=== PATIENT | female | born 1930 | race Caucasian/White ===

== ENCOUNTER 2017-11-25 08:10 | Inpatient (IN) | payer MEDICARE ==
[~2017-11-25] VITALS: Ht 180.3 cm; Wt 82.6 kg
[~2017-11-25 08:10] MED LIST: ANAS1TAB8 PO; LEVO500T2 PO; LORA1TAB PO; METO100T14 PO; PANT40TA2 PO; TRAZ-144 PO
--- NOTE | 2017-11-25 08:23 | NUR ---
Pt and child caregiver private home unable to provide updated med list, per Pt her daughter will bring in med list.
[2017-11-25] MEDS ORDERED: ONDANSETRON 4 MG/2 ML VIAL IV ONE (08:30)
[2017-11-25] MEDS ORDERED: MORPHINE SULFATE 2 MG/1 ML DISP.SYRIN IV ONE (08:30)
[2017-11-25] MEDS ORDERED: IV NORMAL SALINE 1000 ML BAG IV ONE (08:30)
[2017-11-25] MEDS ORDERED: MORPHINE SULFATE 2 MG/1 ML DISP.SYRIN ONE (08:48)
[2017-11-25] MEDS ORDERED: ONDANSETRON 4 MG/2 ML VIAL ONE (08:48)
[2017-11-25 08:50] LABS: CARBON DIOXIDE 21 mmol/L (21-32); CHLORIDE 107 mmol/L (98-107); CREATININE 1.8 mg/dL (0.6-1.3); GLUCOSE 141 mg/dL (74-106); POTASSIUM 4.5 mmol/L (3.5-5.1); UREA NITROGEN, BLOOD 23 mg/dL (7-18)
[2017-11-25 08:54] LABS: BASOPHILS % (AUTO) 0.7 % (0.0-2.0); EOSINOPHILS # (AUTO) 0.2 K/uL (0.0-0.7); HEMATOCRIT 35.8 % (31.2-41.9); HEMOGLOBIN 12.7 g/dL (10.9-14.3); LYMPHOCYTES # (AUTO) 1.3 K/uL (20.0-40.0); LYMPHOCYTES % (AUTO) 26.8 % (20.5-51.5); MEAN CORPUSCULAR HEMOGLOBIN 39.2 uug (24.7-32.8); MEAN CORPUSCULAR HGB CONC 35 g/dL (32.3-35.6); MEAN CORPUSCULAR VOLUME 110.6 fL (75.5-95.3); MONOCYTES # (AUTO) 0.2 K/uL (2.0-10.0); MONOCYTES % (AUTO) 5.1 % (0.0-11.0); NEUTROPHILS % (AUTO) 63.4 % (38.5-71.5); PLATELET COUNT (AUTO) 54 K/uL (179-408); RED BLOOD CELL COUNT(AUTO) 3.24 MIL/uL (3.63-4.92); WHITE BLOOD COUNT (AUTO) 4.7 K/uL (3.8-11.8)
--- NOTE | 2017-11-25 09:14 | NUR ---
Patient was seen by md for fall nd hip pain. Patient was given pain medications. She states pain has diminished. denies nausea. Caregiver from home at bedside. Patient is awake and alert. Velasquez in place as ordered. Urine sent to lab. Pt an caregiver aware of pending admission to hospital. VSS
[2017-11-25 09:18] LABS: ALANINE AMINOTRANSFERASE 42 U/L (14-59); ALKALINE PHOSPHATASE 186 U/L (50-136); ASPARTATE AMINOTRANSFERASE 51 U/L (15-37); BILIRUBIN,DIRECT 0.1 mg/dL (0.0-0.2); BILIRUBIN,TOTAL 0.4 mg/dL (0.1-1.0)
[2017-11-25 09:19] LABS: LIPASE 91 U/L (73-393); TOTAL PROTEIN, SERUM 6.4 g/dL (6.4-8.2)
--- NOTE | 2017-11-25 09:31 | NUR ---
Report given to Stephany NUNEZ on tele floor. Daughter is now here at bedside.
[2017-11-25] MEDS ORDERED: AMIT10TA6 PO (09:36)
[2017-11-25] MEDS ORDERED: TAMS-3 PO (09:36)
[2017-11-25] MEDS ORDERED: MIRT15TA7 PO (09:36)
[2017-11-25] MEDS ORDERED: QUET50TA PO (09:36)
[2017-11-25] MEDS ORDERED: DONE10TA44 PO (09:36)
[2017-11-25 09:41] LABS: *BILIRUBIN,URIN NEGATIVE (NEGATIVE); *BLOOD, URINE NEGATIVE (NEGATIVE); *CLARITY,URINE CLEAR (CLEAR); *COLOR,URINE YELLOW (YELLOW); *KETONES,URINE NEGATIVE (NEGATIVE); *PROTEIN,URINE NEGATIVE (NEGATIVE); *UROBILINOGEN,URINE 0.2 E.U./dl (NORMAL); LEUKOCYTE ESTERASE ,URINE NEGATIVE (NEGATIVE); NITRITE, URINE NEGATIVE (NEGATIVE); PH,URINE 5.5 (5.0-8.0); UGLUCOSE NEGATIVE (NEGATIVE)
[2017-11-25 09:42] LABS: BACTERIA,URINE FEW /HPF (NONE SEEN); RBC,URINE 0-3 /HPF (0-3); SQUAMOUS EPITHELIAL CELL,UR FEW /HPF (NONE SEEN); WBC,URINE 0-3 /HPF (0-3)
[2017-11-25 09:49] LABS: EOSINOPHILS % (MANUAL) 2 % (0-8); LYMPHOCYTES % (MANUAL) 27 % (20-40); MONOCYTES % (MANUAL) 5 % (2-10); NEUTROPHILS % (MANUAL) 66 % (42-75)
--- NOTE | 2017-11-25 10:00 | NUR ---
Received patient from ER via gurney. Patient alert, in no distress, accompanied by daughter/family. Patient admitted to tele under the care of Dr. Osiris Hubbard. Dx: Left hip fracture. Belonging list done, admission process and care plan initiated. MD notified for new admission orders.
[2017-11-25 10:35] VITALS: BP 142/71
[2017-11-25] MEDS ORDERED: MORPHINE SULFATE 2 MG/1 ML DISP.SYRIN IV PRN (12:45)
[2017-11-25] MEDS ORDERED: HYDROCODONE/APAP 5-325MG TABLET PO PRN (12:45)
[2017-11-25] MEDS ORDERED: Medication Not On Formulary EA (Quetiapine Fumarate (Seroquel) 50 MG) PO PRN (12:45)
[2017-11-25] MEDS ORDERED: MAGNESIUM HYDROXIDE 30 ML LIQUID UDC PO PRN (12:45)
[2017-11-25] MEDS ORDERED: MIRTAZAPINE 15 MG TABLET PO PRN (12:45)
[2017-11-25] MEDS ORDERED: ACETAMINOPHEN 325 MG TABLET PO PRN (12:45)
[2017-11-25] MEDS ORDERED: LORAZEPAM 1 MG TABLET PO PRN (12:45)
[2017-11-25] MEDS ORDERED: Z GUARD REMEDY PASTE 57 GM TUBE TOP PRN (12:45)
[2017-11-25] MEDS ORDERED: ONDANSETRON 4 MG/2 ML VIAL IV PRN (12:45)
[2017-11-25] MEDS ORDERED: MORPHINE SULFATE 4 MG/1 ML DISP.SYRIN IV PRN (13:00)
[2017-11-25] MEDS: IV NS 1000 ML 1,000 ML IV PRN (13:37)
[2017-11-25 15:22] VITALS: BP 111/71
--- NOTE | 2017-11-25 18:00 | NUR ---
Patient alert, in no distress, family at bedside. Pain management as ordered. Velasquez cath intact/patent, draining yellow urine. Consent signed by daughter for planned surgery tomorrow. Consent form placed in patient's chart.
[2017-11-25 20:00] VITALS: BP 104/60
--- NOTE | 2017-11-25 20:00 | NUR ---
OBSERVED TO BE AWAKE AND ALERT X 2 WITH DAUGHTER AND CAREGIVER AT BEDSIDE. AWARE OF NPO ORDER AFTER MIDNIGHT FOR SURGERY TOMORROW. NO S/S OF DISTRESS NOTED AT THIS TIME. BED IN LOW, LOCKED POSITION. BED ALARM ON. CALL LIGHT WITHIN REACH. WILL CONTINUE TO MONITOR.
[2017-11-25] MEDS: QUETIAPINE FUMARATE 25 MG TABLET PO PRN (23:35)
[2017-11-26 04:00] VITALS: BP 126/70
--- NOTE | 2017-11-26 06:11 | NUR ---
CAREGIVER AT BEDSIDE. PT OBSERVED TO BE ANXIOUS AND DISORIENTED. REORIENTATION AND PRN MEDICATIONS ADMINISTERED ORDERED. PT NOTED TO HAVE SLEPT INTERMITTENTLY THROUGHOUT THE NIGHT. VITAL SIGNS WNL. BED IN LOW, LOCKED POSITION. BED ALARM ON. IVF RUNNING ORDERED. CALL LIGHT WITHIN REACH. WILL CONTINUE TO MONITOR.
[2017-11-26] MEDS: PANTOPRAZOLE SODIUM 40 MG TABLET.DR PO SCH (06:32)
[2017-11-26] MEDS: IV NS 1000 ML 1,000 ML IV PRN (07:19)
[2017-11-26 07:38] LABS: BASOPHILS % (AUTO) 0.6 % (0.0-2.0); EOSINOPHILS % (AUTO) 0.2 % (0.0-7.0); HEMATOCRIT 31.2 % (31.2-41.9); HEMOGLOBIN 10.8 g/dL (10.9-14.3); LYMPHOCYTES # (AUTO) 1.2 K/uL (20.0-40.0); LYMPHOCYTES % (AUTO) 15.3 % (20.5-51.5); MEAN CORPUSCULAR HGB CONC 35 g/dL (32.3-35.6); MEAN CORPUSCULAR VOLUME 112.4 fL (75.5-95.3); MONOCYTES # (AUTO) 0.5 K/uL (2.0-10.0); NEUTROPHILS # (AUTO) 6.2 K/uL (1.8-8.9); NEUTROPHILS % (AUTO) 77.9 % (38.5-71.5); PLATELET COUNT (AUTO) 58 K/uL (179-408); RED BLOOD CELL COUNT(AUTO) 2.77 MIL/uL (3.63-4.92)
[2017-11-26 07:40] LABS: CARBON DIOXIDE 21 mmol/L (21-32); CHLORIDE 105 mmol/L (98-107); CHOLESTEROL 128 mg/dL (<200); CREATININE 1.8 mg/dL (0.6-1.3); GLUCOSE 132 mg/dL (74-106); HDL CHOLESTEROL 50 mg/dL (40-60); MAGNESIUM 1.6 mg/dL (1.8-2.4); PHOSPHOROUS 4.3 mg/dL (2.5-4.9); POTASSIUM 4.8 mmol/L (3.5-5.1); TRIGLYCERIDES 142 MG/DL (30-150); UREA NITROGEN, BLOOD 28 mg/dL (7-18)
--- NOTE | 2017-11-26 07:50 | NUR ---
RECEIVED SHIFT REPORT FROM DENTAL CERAMIST ASSISTANT NURSE. PATIENT IS NPO PENDING SURGERY TODAY AT 2PM. RESTING COMFORTABLY IN BED AT THIS TIME. CAREGIVER AT BEDSIDE. STABLE CONDITION. NO OF DISTRESS. NON-AMBULATORY. BED IN LOCKED/LOW POSITION, SIDE RAILS UP X2, BED ALARM ON, CALL LIGHT WITHIN REACH.
[2017-11-26 07:53] LABS: THYROID STIMULATING HORMONE 3.348 mIU/mL (0.358-3.740)
[2017-11-26] MEDS: TAMSULOSIN HCL 0.4 MG CAP.SR.24H PO SCH (09:00)
[2017-11-26] MEDS: METOPROLOL SUCCINATE XL 50 MG TAB.SR.24H PO SCH (09:00)
[2017-11-26] MEDS: DONEPEZIL 10 MG TABLET PO SCH (09:00)
[2017-11-26] MEDS: AMITRIPTYLINE HCL 10 MG TABLET PO SCH (09:00)
[2017-11-26 10:14] LABS: LYMPHOCYTES % (MANUAL) 13 % (20-40); MONOCYTES % (MANUAL) 7 % (2-10); NEUTROPHILS % (MANUAL) 80 % (42-75)
[2017-11-26] MEDS ORDERED: IV LACTATED RINGERS SOLUTION 1,000 ML BAG IV ONE (11:25)
[2017-11-26] MEDS ORDERED: ONDANSETRON 4 MG/2 ML VIAL IV ONE (11:25)
[2017-11-26] MEDS ORDERED: CEFAZOLIN 1 G VIAL MC ONE (11:25)
[2017-11-26] MEDS ORDERED: SEVOFLURANE 250 ML BOTTLE IH ONE (11:25)
[2017-11-26] MEDS ORDERED: DEXAMETHASONE SOD PHOSPHATE 10 MG INJ IV ONE (11:25)
[2017-11-26] MEDS ORDERED: PROPOFOL 200 MG/20 ML BOTTLE IV ONE (11:25)
[2017-11-26] MEDS ORDERED: METOCLOPRAMIDE HCL 10 MG/2 ML VIAL IV ONE (11:25)
[2017-11-26] MEDS ORDERED: KETOROLAC TROMETHAMINE 30 MG INJ IM ONE (11:25)
[2017-11-26 12:43] VITALS: BP 105/63
--- NOTE | 2017-11-26 13:45 | NUR ---
PATIENT LEFT FOR SURGERY AT THIS TIME. STABLE CONDITION, VITAL SIGNS STABLE, NO S/S OF DISTRESS. DAUGHTER AT BEDSIDE, WILL BE GOING TO OR TO SIGN ANESTHESIA CONSENT. MD/SURGEON ORDERED TO HAVE TYPE AND SCREEN, CONSENT FOR BLOOD TRANSFUSION, AND 2 UNITS OF PLATELETS INCASE PATIENT REQUIRES DURING OR AFTER SURGERY DUE TO PATIENT'S PLATELET LEVEL OF 58.
[2017-11-26] MEDS ORDERED: VANCOMYCIN 1000 MG VIAL ONE (14:49)
[2017-11-26] MEDS ORDERED: MAGNESIUM SULFATE/D5W 100 ML IV SCH (15:00)
[2017-11-26] MEDS ORDERED: FENTANYL CITRATE 100 MCG/2 ML AMPUL ONE (15:45)
[2017-11-26 17:55] VITALS: BP 100/68
--- NOTE | 2017-11-26 17:55 | NUR ---
PATIENT ARRIVED BACK INTO UNIT FROM OR IN STABLE CONDITION. VITAL SIGNS STABLE. AFEBRILE. PLACED ON O2 3L NC - SATURATING AT 95%. BLOOD PRESSURE 100/68. PATIENT TOLERATED PO WATER INTAKE THEN WAS ALSO ABLE TO TOLERATE PO MILK WITHOUT ASPIRATION. NO S/S OF DISTRESS AT THIS TIME. DAUGHTER AND CAREGIVER AT BEDSIDE. IVF RUNNING PER MD ORDERS.
[2017-11-26] MEDS: POTASSIUM CHLORIDE 20 MEQ in IV D5 1/2 NS 1000 ML 1,000 ML IV PRN (18:06)
--- NOTE | 2017-11-26 19:58 | NUR ---
PER MD, INFUSE PLATELETS ORDERED. CONSENT FORM SIGNS. PT OBSERVED TO BE AWAKE AND ALERT. NO S/S OF DISTRESS NOTED AT THIS TIME. AFEBRILE. WILL MONITOR UOP AND BLOOD PRESSURE THROUGHOUT THE NIGHT. BED IN LOW, LOCKED POSITION. BED ALARM ON. CALL LIGHT WITHIN REACH.
[2017-11-26 20:21] VITALS: BP 93/56
[2017-11-26] MEDS: CEFAZOLIN 1 G in PREMIXED 1 EACH IV SCH (21:17)
--- NOTE | 2017-11-26 23:00 | NUR ---
Urine output noted to be< 100 mls for 6 hrs. Pt repositioned and bladder scan done and noted to be 207 mls. AISHA Newell notified, and ordered to continue to monitor.
[2017-11-27] VITALS (21 sets, daily range): BP systolic 98–135; BP diastolic 44–89
--- NOTE | 2017-11-27 02:00 | NUR ---
Platelet infusion initiated. No reactions noted. Vital signs WNL. Will continue to monitor.
[2017-11-27] MEDS: CEFAZOLIN 1 G in PREMIXED 1 EACH IV SCH (05:25)
[2017-11-27] MEDS: POTASSIUM CHLORIDE 20 MEQ in IV D5 1/2 NS 1000 ML 1,000 ML IV PRN (05:59)
[2017-11-27] MEDS: PANTOPRAZOLE SODIUM 40 MG TABLET.DR PO SCH (06:17)
[2017-11-27 06:41] LABS: ALANINE AMINOTRANSFERASE 21 U/L (14-59); ALKALINE PHOSPHATASE 118 U/L (50-136); ASPARTATE AMINOTRANSFERASE 30 U/L (15-37); BILIRUBIN,TOTAL 0.3 mg/dL (0.2-1.0); CARBON DIOXIDE 19 mmol/L (21-32); CHLORIDE 107 mmol/L (98-107); CREATINE KINASE, TOTAL 95 U/L (26-192); CREATININE 2.4 mg/dL (0.6-1.3); GLUCOSE 163 mg/dL (74-106); MAGNESIUM 1.9 mg/dL (1.8-2.4); PHOSPHOROUS 4.2 mg/dL (2.5-4.9); POTASSIUM 5.3 mmol/L (3.5-5.1); TOTAL PROTEIN, SERUM 5.2 g/dL (6.4-8.2); UREA NITROGEN, BLOOD 37 mg/dL (7-18)
[2017-11-27 07:21] LABS: BASOPHILS # (AUTO) 0.1 K/uL (0.0-8.0); BASOPHILS % (AUTO) 0.9 % (0.0-2.0)
--- NOTE | 2017-11-27 07:21 | NUR ---
RECEIVED SHIFT REPORT FROM MANAGER RETENTION NURSE. PATIENT RESTING COMFORTABLY IN BED, CAREGIVER AT BEDSIDE. CRITICAL LAB VALUE REPORT THIS MORNING WITH HEMOGLOBIN 6.6 BUT LAB WAS [facility] AND AWAITING FOR RESULTS. WILL NOTIFY MD IF HEMOGLOBIN IS CRITICAL FROM [facility]. NO S/S OF BLEEDING AT THIS TIME. PATIENT WAS TRANSFUSED TWO UNITS OF PLATELETS DURING THE MANAGER RETENTION. STABLE CONDITION, NO S/S OF DISTRESS. WILL CONTINUE TO MONITOR. IVF RUNNING. BED ALARM ON, CALL LIGHT WITHIN REACH. BED IN LOCKED/LOW POSITION, SIDE RAILS UP X2.
[2017-11-27 07:23] LABS: EOSINOPHILS % (AUTO) 0.8 % (0.0-7.0); LYMPHOCYTES # (AUTO) 0.9 K/uL (20.0-40.0); MEAN CORPUSCULAR HEMOGLOBIN 39.3 uug (24.7-32.8); MEAN CORPUSCULAR HGB CONC 35 g/dL (32.3-35.6); MONOCYTES # (AUTO) 0.4 K/uL (2.0-10.0); MONOCYTES % (AUTO) 6.6 % (0.0-11.0); NEUTROPHILS # (AUTO) 5.1 K/uL (1.8-8.9); NEUTROPHILS % (AUTO) 77.7 % (38.5-71.5); PLATELET COUNT (AUTO) 80 K/uL (179-408); WHITE BLOOD COUNT (AUTO) 6.5 K/uL (3.8-11.8)
[2017-11-27 07:35] LABS: HEMATOCRIT 19.4 % (31.2-41.9); RED BLOOD CELL COUNT(AUTO) 1.72 MIL/uL (3.63-4.92)
[2017-11-27 07:36] LABS: *CREATININE,URINE 217.1 mg/dL (30-125); *URINE TOTAL PROTEIN RANDOM 49.9 mg/dL (<150/24HR)
[2017-11-27 07:38] LABS: HEMOGLOBIN 6.7 g/dL (10.9-14.3)
--- NOTE | 2017-11-27 07:42 | NUR ---
CRITICAL LAB VALUE REPORTED FROM [facility]: HEMOGLOBIN 6.7 HEMATOCRIT 19.4 MD WILL BE CONTACTED.
[2017-11-27 07:51] LABS: *BILIRUBIN,URIN NEGATIVE (NEGATIVE); *BLOOD, URINE 2+ (NEGATIVE); *CLARITY,URINE CLEAR (CLEAR); *COLOR,URINE YELLOW (YELLOW); *KETONES,URINE TRACE (NEGATIVE); *PROTEIN,URINE 1+ (NEGATIVE); *UROBILINOGEN,URINE 0.2 E.U./dl (NORMAL); LEUKOCYTE ESTERASE ,URINE NEGATIVE (NEGATIVE); NITRITE, URINE NEGATIVE (NEGATIVE); UGLUCOSE NEGATIVE (NEGATIVE)
[2017-11-27 08:02] LABS: BACTERIA,URINE NONE SEEN /HPF (NONE SEEN); SQUAMOUS EPITHELIAL CELL,UR FEW /HPF (NONE SEEN)
[2017-11-27] MEDS: METOPROLOL SUCCINATE XL 50 MG TAB.SR.24H PO SCH (09:00)
[2017-11-27] MEDS: AMITRIPTYLINE HCL 10 MG TABLET PO SCH (09:09)
[2017-11-27] MEDS: TAMSULOSIN HCL 0.4 MG CAP.SR.24H PO SCH (09:09)
[2017-11-27] MEDS: DONEPEZIL 10 MG TABLET PO SCH (09:09)
[2017-11-27] MEDS: HYDROCODONE/APAP 10-325 MG TABLET PO PRN (15:17)
--- NOTE | 2017-11-27 20:00 | NUR ---
RECEIVED PATIENT ASLEEP IN BED BUT EASILY AROUSABLE. SHE DENIES PAIN, NO ACUTE DISTRESS ON ASSESSMENT. SAFETY MEASURES IN PLACE, WILL CONTINUE TO MONITOR PATIENT
--- NOTE | 2017-11-27 21:34 | NUR ---
INFUSE PLATELETS PER MD ORDERS, CONSENT CHECKED AND IN PATIENT'S CHART. VSS BP 119/60, RI 89, RR 18
--- NOTE | 2017-11-27 21:34 | NUR ---
PLATELETS INFUSION INITIATED ORDERED. WILL CONTINUE TO MONITOR
--- NOTE | 2017-11-27 21:49 | NUR ---
PLATELETS INFUSING WITH NO ADVERSE REACTIONS NOTED, VSS; BP 123/63, UT 88, RR 18, TEMP 97.8, 02 SAT 97%. WILL CONTINUE TO MONITOR PATIENT
[2017-11-27] MEDS: MORPHINE SULFATE 4 MG/1 ML DISP.SYRIN IV PRN (22:05)
--- NOTE | 2017-11-27 23:45 | NUR ---
END PLATELETS INFUSION, PATIENT TOLERATED INFUSION WELL. NO ADVERSE REACTIONS WITH INFUSION, VSS BP 126/67, IN 84, RR 18, TEMP 98.1
[2017-11-27] MEDS: QUETIAPINE FUMARATE 25 MG TABLET PO PRN (23:57)
[2017-11-28] VITALS (15 sets, daily range): BP systolic 93–129; BP diastolic 49–87
[2017-11-28] MEDS: MORPHINE SULFATE 4 MG/1 ML DISP.SYRIN IV PRN ×2 (04:30→20:26)
[2017-11-28] MEDS: PANTOPRAZOLE SODIUM 40 MG TABLET.DR PO SCH (06:03)
[2017-11-28 06:33] LABS: BASOPHILS # (AUTO) 0.1 K/uL (0.0-8.0); EOSINOPHILS # (AUTO) 0.2 K/uL (0.0-0.7); LYMPHOCYTES # (AUTO) 0.9 K/uL (20.0-40.0); MONOCYTES # (AUTO) 0.3 K/uL (2.0-10.0); WHITE BLOOD COUNT (AUTO) 6.4 K/uL (3.8-11.8)
[2017-11-28 06:35] LABS: EOSINOPHILS % (AUTO) 3.9 % (0.0-7.0); LYMPHOCYTES % (AUTO) 13.9 % (20.5-51.5); MEAN CORPUSCULAR HEMOGLOBIN 37.5 uug (24.7-32.8); MEAN CORPUSCULAR HGB CONC 35 g/dL (32.3-35.6); MEAN CORPUSCULAR VOLUME 107.7 fL (75.5-95.3); NEUTROPHILS # (AUTO) 4.9 K/uL (1.8-8.9); NEUTROPHILS % (AUTO) 76.2 % (38.5-71.5); PLATELET COUNT (AUTO) 93 K/uL (179-408)
--- NOTE | 2017-11-28 06:35 | NUR ---
PATIENT SLEPT WELL THROUGH THE SHIFT. PAIN MEDS GIVEN X2 WITH EFFECT. VSS STABLE, NO SIGNIFICANT CHANGES IN STATUS. SAFETY AND COMFORT MEASURES MAINTAINED AT ALL TIMES
[2017-11-28 06:45] LABS: CARBON DIOXIDE 24 mmol/L (21-32); CHLORIDE 107 mmol/L (98-107); CREATININE 1.7 mg/dL (0.6-1.3); GLUCOSE 128 mg/dL (74-106); MAGNESIUM 1.8 mg/dL (1.8-2.4); PHOSPHOROUS 2.9 mg/dL (2.5-4.9); UREA NITROGEN, BLOOD 34 mg/dL (7-18)
[2017-11-28 06:51] LABS: RED BLOOD CELL COUNT(AUTO) 1.76 MIL/uL (3.63-4.92)
[2017-11-28 06:55] LABS: HEMOGLOBIN 6.6 g/dL (10.9-14.3)
--- NOTE | 2017-11-28 07:37 | NUR ---
RECEIVED SHIFT REPORT FROM WAITSTAFF NURSE. PATIENT RESTING COMFORTABLY IN BED AT THIS TIME. NO S/S OF DISTRESS. PT RECEIVED BLOOD TRANSFUSION 1 UNIT PLATELETS DURING WAITSTAFF AND RECEIVED 1 UNIT BLOOD TRANSFUSION OF PRBC DURING YESTERDAY'S DAY SHIFT: CRITICAL LAB VALUE REPORTED THIS MORNING FROM LAB: HEMOGLOBIN 6.6 HEMATOCRIT 19.0 - WAITSTAFF NOTIFIED MD, AWAITING FOR MD CALL TO NOTIFY MD OF CRITICAL LAB VALUES AND POSSIBLE ORDERS. WILL NOTIFY MD OF PATIENT'S HEMOGLOBIN/HEMATOCRIT LEVELS EVEN WITH BLOOD TRANSFUSION, POSSIBLE BLEEDING. NO SIGNS/SYMPTOMS OF BLEEDING. WILL CONTINUE PATIENT FOR SIGNS/SYMPTOMS OF BLEEDING. CAREGIVER AT BEDSIDE AT THIS TIME. PT NO S/S OF DISTRESS, STABLE CONDITION. IVF KCL 20 MEQ IN D51/2NS HELD DURING YESTERDAY'S DAY SHIFT DUE TO ELEVATED POTASSIUM LEVELS. WILL NOTIFY MD.
[2017-11-28] MEDS: AMITRIPTYLINE HCL 10 MG TABLET PO SCH (08:55)
[2017-11-28] MEDS: DONEPEZIL 10 MG TABLET PO SCH (08:56)
[2017-11-28] MEDS: TAMSULOSIN HCL 0.4 MG CAP.SR.24H PO SCH (08:56)
--- NOTE | 2017-11-28 09:00 | NUR ---
ORDERED TO HAVE 2-UNITS OF PRBCs TRANSFUSED. CONSENT FORM SIGNED. PATIENT HAS HAD BLOOD TRANSFUSED DURING THIS CURRENT ADMISSION.
[2017-11-28] MEDS: METOPROLOL SUCCINATE XL 50 MG TAB.SR.24H PO SCH (09:04)
[2017-11-28] MEDS: HYDROCODONE/APAP 10-325 MG TABLET PO PRN (12:35)
--- NOTE | 2017-11-28 13:22 | NUR ---
FIRST UNIT OF PRBCs STARTED TRANSFUSING AT THIS TIME. VITAL SIGNS TAKEN BEFORE TRANSFUSION. VITAL SIGNS STABLE. PATIENT HAS NO HISTORY OF BLOOD TRANSFUSION ADVERSE REACTIONS, SAME GOES FOR CURRENT ADMISSION.
--- NOTE | 2017-11-28 13:28 | NUR ---
NO SIGNS/SYMPTOMS OF ADVERSE REACTIONS TO BLOOD TRANSFUSIONS. PATIENT BEING CONTINUOUSLY MONITORED.
--- NOTE | 2017-11-28 19:50 | NUR ---
PATIENT IS AWAKE IN BED, END BLOOD TRANSFUSION, TOLERATED INFUSION WELL WITH NO ADVERSE REACTIONS. VSS WNL BP 113/87, WA 81, RR 18, TEMP 98.1, O2 SAT @ 97%. NO C/O PAIN ANY ANY ACUTE DISTRESS ON ASSESSMENT. WILL CONTINUE TO MONITOR PATIENT
[2017-11-28] MEDS: IV D5 1/2 NS 1000 ML 1,000 ML IV PRN (21:28)
[2017-11-29 04:00] VITALS: BP 115/64
--- NOTE | 2017-11-29 05:36 | NUR ---
PATIENT SLEPT WELL THROUGH THE SHIFT, VSS STABLE. PAIN MEDS GIVEN X1 ON THIS SHIFT. NO S/S OF PAIN OR ANY ACUTE DISTRESS, NO SIGNIFICANT CHANGES IN STATUS. SAFETY MEASURES MAINTAINED AT ALL TIMES
[2017-11-29] MEDS: PANTOPRAZOLE SODIUM 40 MG TABLET.DR PO SCH (06:16)
[2017-11-29 06:52] LABS: CARBON DIOXIDE 25 mmol/L (21-32); CHLORIDE 104 mmol/L (98-107); CREATININE 1.2 mg/dL (0.6-1.3); GLUCOSE 134 mg/dL (74-106); MAGNESIUM 1.6 mg/dL (1.8-2.4); UREA NITROGEN, BLOOD 28 mg/dL (7-18)
--- NOTE | 2017-11-29 07:20 | NUR ---
RECEIVED REPORT FROM HAND WINDER NURSE, PATIENT IN BED AWAKE, NO DISTRESS NOTED AT THIS TIME, BED IN LOW POSITION, SIDE RAILS UP X2. BED ALARM ON. PULSE PALPABLE ON LEFT LOWER EXTREMITY, NO SWELLING, REDNESS OR ALTERATION IN TEMPERATURE.
[2017-11-29 07:40] LABS: BASOPHILS % (AUTO) 0.7 % (0.0-2.0); EOSINOPHILS # (AUTO) 0.2 K/uL (0.0-0.7); EOSINOPHILS % (AUTO) 4.3 % (0.0-7.0); LYMPHOCYTES # (AUTO) 0.9 K/uL (20.0-40.0); LYMPHOCYTES % (AUTO) 15.7 % (20.5-51.5); MEAN CORPUSCULAR HEMOGLOBIN 35.5 uug (24.7-32.8); MEAN CORPUSCULAR HGB CONC 35 g/dL (32.3-35.6); MONOCYTES # (AUTO) 0.3 K/uL (2.0-10.0); MONOCYTES % (AUTO) 5.6 % (0.0-11.0); NEUTROPHILS # (AUTO) 4.2 K/uL (1.8-8.9); NEUTROPHILS % (AUTO) 73.7 % (38.5-71.5); PLATELET COUNT (AUTO) 83 K/uL (179-408); RED BLOOD CELL COUNT(AUTO) 2.73 MIL/uL (3.63-4.92); WHITE BLOOD COUNT (AUTO) 5.7 K/uL (3.8-11.8)
[2017-11-29 07:41] LABS: HEMATOCRIT 27.8 % (31.2-41.9); HEMOGLOBIN 9.7 g/dL (10.9-14.3)
[2017-11-29] MEDS: DONEPEZIL 10 MG TABLET PO SCH (08:21)
[2017-11-29] MEDS: AMITRIPTYLINE HCL 10 MG TABLET PO SCH (08:21)
[2017-11-29] MEDS: TAMSULOSIN HCL 0.4 MG CAP.SR.24H PO SCH (08:21)
[2017-11-29] MEDS: METOPROLOL SUCCINATE XL 50 MG TAB.SR.24H PO SCH (08:21)
[2017-11-29] MEDS: MORPHINE SULFATE 4 MG/1 ML DISP.SYRIN IV PRN ×2 (09:39→18:57)
[2017-11-29 10:32] LABS: BAND % (MANUAL) 1 % (0-10); EOSINOPHILS % (MANUAL) 1 % (0-8); LYMPHOCYTES % (MANUAL) 13 % (20-40); METAMYELOCYTES % 1 % (0-1); MONOCYTES % (MANUAL) 6 % (2-10); NEUTROPHILS % (MANUAL) 78 % (42-75)
[2017-11-29 11:42] VITALS: BP 118/61
[2017-11-29] MEDS ORDERED: MAGNESIUM OXIDE 400 MG TABLET PO ONE (13:15)
[2017-11-29] MEDS ORDERED: SODIUM PHOSPHATE MM 5 MM in IV DEXTROSE 5% 100 ML IV ONE (14:30)
[2017-11-29 15:42] VITALS: BP 105/56
[2017-11-29 18:38] LABS: HEMATOCRIT 27.2 % (31.2-41.9); HEMOGLOBIN 9.6 g/dL (10.9-14.3)
--- NOTE | 2017-11-29 18:46 | NUR ---
PATIENT HAS BEEN COOPERATIVE WITH CARE. PT ATTEMPTED TO GET PATIENT OUT OF BED. PATIENT EXPERIENCED PAIN AND WAS GIVEN MEDICATION TWICE THROUGHOUT SHIFT. CURRENTLY PATIENT IN BED, NO DISTRESS NOTED, BED IN LOW POSITION, SIDE RAILS UP X2. BED ALARM ON.
[2017-11-29] MEDS: IV D5 1/2 NS 1000 ML 1,000 ML IV PRN (18:53)
--- NOTE | 2017-11-29 19:30 | NUR ---
Received patient laying comfortably in her right side. No acute distress noted. Patient c/o slight discomfort but denies pain and SOB. Family at bedside. A/O x 3 forgetful. Patient on O2 2L NC. IVF running on the right FA. Noted bilateral arms bruise. Surgical dressing of the left leg C/D/I. Velasquez draining clear and yellow urine. DVT Pumps on. Safety initiated. Call light within reach. Will continue to monitor.
[2017-11-29 20:09] VITALS: BP 116/53
[2017-11-29 20:20] VITALS: BP 116/53
[2017-11-29] MEDS ORDERED: HEPARIN SODIUM,PORCINE 5,000 UNITS/ML VIAL SQ SCH (21:00)
--- NOTE | 2017-11-29 21:12 | NUR ---
Order for Heparin 19200 IU, confirmed order with DELFINO Villatoro because PLT was 83 (L). He is aware, he said to administer. Will closely monitor.
--- NOTE | 2017-11-29 21:15 | NUR ---
Transferred patient safely to ARU room 101 B in stable condition. Report given to ENRIQUE Yang.
[2017-11-29] MEDS ORDERED: ACET-73 PO (22:25)
[2017-11-29] MEDS ORDERED: MAGN400O6 PO (22:25)
[2017-11-29] MEDS ORDERED: HEPA500013 SQ (22:25)
[2017-11-29] MEDS ORDERED: HYDR-548 PO (22:25)
[2017-11-29] MEDS ORDERED: ONDA2VIA2 IV (22:25)
[2017-11-30 08:06] LABS: A/G RATIO 1.1 (0.7-1.7); ALBUMIN 2.6 g/dL (2.9-4.4); ALPHA-1-GLOBULIN 0.2 g/dL (0.0-0.4); ALPHA-2-GLOBULIN 0.5 g/dL (0.4-1.0); BETA GLOBULIN 0.8 g/dL (0.7-1.3); GAMMA GLOBULIN 0.9 g/dL (0.4-1.8); GLOBULIN, TOTAL 2.4 g/dL (2.2-3.9); M-SPIKE Not Observed g/dL (Not Observed)
[2017-12-01 04:08] LABS: VIT D, 25-HYDROXY 11.1 ng/mL (30.0-100.0)
[2017-12-01 13:07] LABS: CALCITRIOL VIT D,1,25 DIHYDROX 14.4 pg/mL (19.9-79.3)
== END 2017-11-29 21:20 | DRG 480 ==
LOC: ER 08:10 → TELE 09:56 → MED 14:04
PROVIDERS: ADMIT Nurse Practitioner Acute Care; ATTEND Nurse Practitioner Acute Care
PROC: 0QS734Z Reposition Left Upper Femur with Internal Fixation Device, Percutaneous Approach (ICD-10-PCS; 2017-11-26)
PROC: 0QH706Z Insertion of Intramedullary Internal Fixation Device into Left Upper Femur, Open Approach (ICD-10-PCS; principal; 2017-11-26 14:30)
PROC: 30233R1 Transfusion of Nonautologous Platelets into Peripheral Vein, Percutaneous Approach (ICD-10-PCS; 2017-11-27)
PROC: 30233N1 Transfusion of Nonautologous Red Blood Cells into Peripheral Vein, Percutaneous Approach (ICD-10-PCS; 2017-11-27)
DX: S72.142A Displaced intertrochanteric fracture of left femur, initial encounter for closed fracture (principal); N17.0 Acute kidney failure with tubular necrosis; C79.2 Secondary malignant neoplasm of skin; D69.6 Thrombocytopenia, unspecified; E83.42 Hypomagnesemia; E83.39 Other disorders of phosphorus metabolism; C50.911 Malignant neoplasm of unspecified site of right female breast; F03.90 Unspecified dementia, unspecified severity, without behavioral disturbance, psychotic disturbance, mood disturbance, and anxiety; D75.89 Other specified diseases of blood and blood-forming organs; D62 Acute posthemorrhagic anemia; Z79.899 Other long term (current) drug therapy; Z85.3 Personal history of malignant neoplasm of breast; W19.XXXA Unspecified fall, initial encounter; Y92.009 Unspecified place in unspecified non-institutional (private) residence as the place of occurrence of the external cause; Z90.12 Acquired absence of left breast and nipple; Z96.653 Presence of artificial knee joint, bilateral; K21.9 Gastro-esophageal reflux disease without esophagitis; S72.22XA Displaced subtrochanteric fracture of left femur, initial encounter for closed fracture; I12.9 Hypertensive chronic kidney disease with stage 1 through stage 4 chronic kidney disease, or unspecified chronic kidney disease; N18.9 Chronic kidney disease, unspecified
CPT/HCPCS: 36415; 51702; 70030-TC; 71045; 73502; 73503; 76000; 76770; 82306; 82652; 83690; 83735; 83970; 84100; 84155; 84156; 84165; 84300; 84443; 85018; 85025; 86850; 86900; 86901; 86920; 87086; 93005; 93307; A4663; C1769; J0690; J1100; J1644; J1885; J2270; J2405; J2765; J3010; J3370; J3475; J3480; J3490; J7030; J7040; J7060; J7120; P9016-BL; P9021; P9035-BL

== ENCOUNTER 2017-11-29 21:44 | Inpatient (IN) | payer MEDICARE ==
[~2017-11-29] VITALS: Ht 180.3 cm; Wt 82.6 kg
[~2017-11-29 21:44] MED LIST changes: +AMIT10TA6 PO; -ANAS1TAB8 PO; +DONE10TA44 PO; -LEVO500T2 PO; +MIRT15TA7 PO; +QUET50TA PO; +TAMS-3 PO; -TRAZ-144 PO
[2017-11-29] MEDS ORDERED: Z GUARD REMEDY PASTE 57 GM TUBE TOP PRN (22:15)
[2017-11-29] MEDS ORDERED: ONDA2VIA2 IV (22:25)
[2017-11-29] MEDS ORDERED: HYDR-548 PO (22:25)
[2017-11-29] MEDS ORDERED: ACET-73 PO (22:25)
[2017-11-29] MEDS ORDERED: HEPA500013 SQ (22:25)
[2017-11-29] MEDS ORDERED: MAGN400O6 PO (22:25)
--- NOTE | 2017-11-29 22:40 | NUR ---
Pt arrived in the unit at 2130 via hospital bed from Med Surg 2nd floor, accompanied by RN and PAPER FOLDER. Pt's daughter and manager personal at bedside. poly area supervisor to stay overnight, supervisor bleach plant informed and was approved. All pertinent assessment done. Notified MD for med recon. Vital signs stable. On 2L O2 via NC, tolerating well. No acute distress noted. No c/o pain or discomfort. Velasquez catheter draining yellow colored urine. Oriented pt to the unit. Safety measures maintained. Call light and personal belongings within reach. Will continue to monitor.
[2017-11-29] MEDS ORDERED: ACETAMINOPHEN ES 500 MG TABLET PO PRN (23:00)
[2017-11-29] MEDS ORDERED: LORAZEPAM 1 MG TABLET PO PRN (23:00)
[2017-11-29] MEDS ORDERED: MIRTAZAPINE 15 MG TABLET PO PRN (23:00)
[2017-11-29] MEDS ORDERED: MAGNESIUM HYDROXIDE 30 ML LIQUID UDC PO SCH (23:00)
[2017-11-29] MEDS ORDERED: QUETIAPINE FUMARATE 25 MG TABLET PO PRN (23:00)
[2017-11-29] MEDS ORDERED: ONDANSETRON ODT 4 MG TAB.RAPDIS SL PRN (23:00)
[2017-11-29 23:22] VITALS: BP 109/50
[2017-11-30] MEDS: HYDROCODONE/APAP 10-325 MG TABLET PO PRN ×3 (01:30→21:53)
--- NOTE | 2017-11-30 06:22 | NUR ---
Surgical site healing well. No s/s of infection. Dressing changed. Will continue to monitor.
[2017-11-30 08:00] VITALS: BP 113/59
--- NOTE | 2017-11-30 08:00 | NUR ---
Received patient asleep, non-labored breathing. On O2 at 2LPM
[2017-11-30] MEDS ORDERED: METOPROLOL TARTRATE 100 MG TABLET PO SCH (09:00)
[2017-11-30] MEDS ORDERED: PANTOPRAZOLE SODIUM 40 MG TABLET.DR PO SCH (09:00)
--- NOTE | 2017-11-30 09:10 | NUR ---
Pain over left hip rated as 8/10. [place] 10-325 PRN given
[2017-11-30] MEDS: TAMSULOSIN HCL 0.4 MG CAP.SR.24H PO SCH (09:23)
[2017-11-30] MEDS: AMITRIPTYLINE HCL 10 MG TABLET PO SCH (09:24)
[2017-11-30] MEDS: HEPARIN SODIUM,PORCINE 5,000 UNITS/ML VIAL SQ SCH ×2 (09:24→20:35)
[2017-11-30] MEDS: DONEPEZIL 10 MG TABLET PO SCH (09:26)
--- NOTE | 2017-11-30 11:03 | NUR ---
Up with occupational therapy, O2 saturation at 84% upon exertion and activity. Increased O2 at 3LPM sating well above 90%.
[2017-11-30 12:34] LABS: BASOPHILS # (AUTO) 0.1 K/uL (0.0-8.0); BASOPHILS % (AUTO) 1.3 % (0.0-2.0); EOSINOPHILS # (AUTO) 0.2 K/uL (0.0-0.7); EOSINOPHILS % (AUTO) 3.6 % (0.0-7.0); HEMOGLOBIN 10.8 g/dL (10.9-14.3); LYMPHOCYTES # (AUTO) 0.5 K/uL (20.0-40.0); LYMPHOCYTES % (AUTO) 9.9 % (20.5-51.5); MEAN CORPUSCULAR HEMOGLOBIN 35.8 uug (24.7-32.8); MEAN CORPUSCULAR HGB CONC 34 g/dL (32.3-35.6); MEAN CORPUSCULAR VOLUME 104.2 fL (75.5-95.3); MONOCYTES # (AUTO) 0.3 K/uL (2.0-10.0); MONOCYTES % (AUTO) 5.9 % (0.0-11.0); NEUTROPHILS # (AUTO) 4.2 K/uL (1.8-8.9); NEUTROPHILS % (AUTO) 79.3 % (38.5-71.5); PLATELET COUNT (AUTO) 86 K/uL (179-408); RED BLOOD CELL COUNT(AUTO) 3.01 MIL/uL (3.63-4.92); WHITE BLOOD COUNT (AUTO) 5.3 K/uL (3.8-11.8)
[2017-11-30 12:39] LABS: HEMATOCRIT 31.3 % (31.2-41.9)
[2017-11-30] MEDS ORDERED: MAGNESIUM HYDROXIDE 30 ML LIQUID UDC PO PRN (12:39)
[2017-11-30 13:06] LABS: CARBON DIOXIDE 22 mmol/L (21-32); CHLORIDE 104 mmol/L (98-107); CREATININE 1.2 mg/dL (0.6-1.3); GLUCOSE 158 mg/dL (74-106); POTASSIUM 5.2 mmol/L (3.5-5.1); UREA NITROGEN, BLOOD 27 mg/dL (7-18)
[2017-11-30 13:34] LABS: BAND % (MANUAL) 1 % (0-10); EOSINOPHILS % (MANUAL) 4 % (0-8); LYMPHOCYTES % (MANUAL) 14 % (20-40); METAMYELOCYTES % 1 % (0-1); MONOCYTES % (MANUAL) 4 % (2-10); NEUTROPHILS % (MANUAL) 76 % (42-75)
[2017-11-30] MEDS ORDERED: ACETAMINOPHEN 325 MG TABLET PO PRN (17:15)
[2017-11-30 19:30] VITALS: BP 122/50
--- NOTE | 2017-11-30 19:30 | NUR ---
Pt in room alert awake in no acute distress. Able to follow simple commands. States pain up to 8/10 when moving to left hipe area. Dressing intact with no s/s of infection. Vital signs are WNL. Pt c/o some "gassy feeling". Daughter at bedside. Dr Stevie Newell made aware of pt's concern. Will continue to monitor. Call light within reach. Reminded pt of 50% wt bearing.
[2017-11-30] MEDS: SIMETHICONE 80 MG TAB.CHEW PO PRN (20:36)
[2017-11-30] MEDS: MIRTAZAPINE 15 MG TABLET PO PRN (21:53)
[2017-12-01] MEDS: HYDROCODONE/APAP 10-325 MG TABLET PO PRN ×2 (02:30→10:34)
--- NOTE | 2017-12-01 06:00 | NUR ---
PT IN ROOM ALERT AWAKE IN NO ACUTE DISTRESS OVERNIGHT. ABLE TO SLEEP AFTER PRN SEROQUEL AND NORCO WAS GIVEN. NO INCREASED ANXIETY NOTED. GG PRESENT AT BEDSIDE. NO DRAINAGE NOTED THROUGH DRESSING ON SURGICAL SITE. F/C IN TACT VOIDING WELL. WILL CONTINUE TO MONITOR.
[2017-12-01 06:45] LABS: BASOPHILS # (AUTO) 0.1 K/uL (0.0-8.0); BASOPHILS % (AUTO) 1.1 % (0.0-2.0); EOSINOPHILS # (AUTO) 0.3 K/uL (0.0-0.7); EOSINOPHILS % (AUTO) 5.8 % (0.0-7.0); HEMATOCRIT 24.7 % (31.2-41.9); HEMOGLOBIN 8.8 g/dL (10.9-14.3); LYMPHOCYTES # (AUTO) 1.1 K/uL (20.0-40.0); LYMPHOCYTES % (AUTO) 22.3 % (20.5-51.5); MEAN CORPUSCULAR HGB CONC 35 g/dL (32.3-35.6); MEAN CORPUSCULAR VOLUME 101.7 fL (75.5-95.3); MONOCYTES # (AUTO) 0.4 K/uL (2.0-10.0); MONOCYTES % (AUTO) 7.6 % (0.0-11.0); NEUTROPHILS # (AUTO) 3.1 K/uL (1.8-8.9); NEUTROPHILS % (AUTO) 63.2 % (38.5-71.5); PLATELET COUNT (AUTO) 83 K/uL (179-408); WHITE BLOOD COUNT (AUTO) 4.9 K/uL (3.8-11.8)
[2017-12-01 06:56] LABS: CARBON DIOXIDE 26 mmol/L (21-32); CHLORIDE 105 mmol/L (98-107); CREATININE 1.2 mg/dL (0.6-1.3); GLUCOSE 101 mg/dL (74-106); POTASSIUM 4.8 mmol/L (3.5-5.1); UREA NITROGEN, BLOOD 27 mg/dL (7-18)
[2017-12-01 07:05] LABS: RED BLOOD CELL COUNT(AUTO) 2.43 MIL/uL (3.63-4.92)
[2017-12-01] MEDS: PANTOPRAZOLE SODIUM 40 MG TABLET.DR PO SCH (07:47)
[2017-12-01 08:00] VITALS: BP 121/62
[2017-12-01] MEDS: AMITRIPTYLINE HCL 10 MG TABLET PO SCH (08:46)
[2017-12-01] MEDS: DONEPEZIL 10 MG TABLET PO SCH (08:47)
[2017-12-01] MEDS: TAMSULOSIN HCL 0.4 MG CAP.SR.24H PO SCH (08:47)
[2017-12-01] MEDS: HEPARIN SODIUM,PORCINE 5,000 UNITS/ML VIAL SQ SCH ×2 (08:48→21:11)
[2017-12-01] MEDS: METOPROLOL TARTRATE 100 MG TABLET PO SCH (09:00)
[2017-12-01 09:11] LABS: EOSINOPHILS % (MANUAL) 3 % (0-8); LYMPHOCYTES % (MANUAL) 19 % (20-40); MONOCYTES % (MANUAL) 8 % (2-10); NEUTROPHILS % (MANUAL) 70 % (42-75)
[2017-12-01] MEDS ORDERED: ZOLPIDEM 5 MG TABLET PO PRN (17:45)
--- NOTE | 2017-12-01 18:41 | NUR ---
Patient is alert and oriented x3. not in distress. S/P ORIF, dressing change done for 3 suture with small amount of yellowish and red drainage. no signs of infection. slept on and off. complaint of difficulty sleeping at night. MD ordered ambien 5mg QHS PRN. Continue PT for weakness and unsteady gait. Aspiration/choking precaution maintained. Continue on pain management with good effect. Call lala within reach. All needs attended. will continue monitor
[2017-12-01 21:01] VITALS: BP 118/65
--- NOTE | 2017-12-02 06:00 | NUR ---
pt alert,oriented, forgetful ,pleasant pt, ,very appreciative with care, had x2 bm, slept well with ambien, woke up got disoriented, private sitter at bedside.pain only when turned. kept legs elevated, scd at night.vss,afebrile.
[2017-12-02] MEDS: PANTOPRAZOLE SODIUM 40 MG TABLET.DR PO SCH (06:01)
[2017-12-02 07:03] VITALS: BP 122/62
--- NOTE | 2017-12-02 09:00 | NUR ---
PATIENT NOTED RESTING IN BED WITH EYES CLOSED, NO FACIAL CUES OF PAIN, NO SIGNS OF DISTRESS NOTED, CALL LIGHT IN REACH, BED LOCKED AND IN LOWEST POSITION, AM MEDICATIONS CRUSHED AND GIVEN WITH APPLE SAUCE, ALL NEEDS MET AT THIS TIME
[2017-12-02] MEDS: AMITRIPTYLINE HCL 10 MG TABLET PO SCH (09:24)
[2017-12-02] MEDS: TAMSULOSIN HCL 0.4 MG CAP.SR.24H PO SCH (09:24)
[2017-12-02] MEDS: METOPROLOL TARTRATE 100 MG TABLET PO SCH (09:24)
[2017-12-02] MEDS: DONEPEZIL 10 MG TABLET PO SCH (09:24)
[2017-12-02] MEDS: HEPARIN SODIUM,PORCINE 5,000 UNITS/ML VIAL SQ SCH ×2 (09:26→20:46)
[2017-12-02 14:44] LABS: HEMATOCRIT 28.1 % (31.2-41.9); HEMOGLOBIN 9.8 g/dL (10.9-14.3)
[2017-12-02] MEDS: SIMETHICONE 80 MG TAB.CHEW PO PRN (18:56)
[2017-12-02 21:22] LABS: *BILIRUBIN,URIN NEGATIVE (NEGATIVE); *BLOOD, URINE NEGATIVE (NEGATIVE); *CLARITY,URINE CLEAR (CLEAR); *COLOR,URINE YELLOW (YELLOW); *KETONES,URINE NEGATIVE (NEGATIVE); *PROTEIN,URINE 1+ (NEGATIVE); LEUKOCYTE ESTERASE ,URINE NEGATIVE (NEGATIVE); NITRITE, URINE NEGATIVE (NEGATIVE); PH,URINE 7.5 (5.0-8.0); UGLUCOSE NEGATIVE (NEGATIVE)
[2017-12-02 21:43] LABS: MUCUS,URINE FEW /LPF (0-FEW)
[2017-12-02 22:11] VITALS: BP 146/72
--- NOTE | 2017-12-02 22:14 | NUR ---
resting in bed. patient lethargic but arousable. open eyes when name being called. daughter in with patient. needs attended. no acute distress noted. will monitor patient. incontinent of BM. Kept clean and dry. Velasquez catheter draining yellow urine. will monitor patient. sitter in with patient. denies any pain nor any discomfort.
--- NOTE | 2017-12-03 05:42 | NUR ---
slept most of the shift. no distress noted. sitter at bedside. rivera catheter draining yellow enoch urine. needs attended. incontinent of BM kept clean and dry. rivera catheter draining yellow urine. I & O monitor.siderails up for safety.
[2017-12-03] MEDS: PANTOPRAZOLE SODIUM 40 MG TABLET.DR PO SCH (06:15)
[2017-12-03 07:22] LABS: BASOPHILS # (AUTO) 0.1 K/uL (0.0-8.0); BASOPHILS % (AUTO) 1.6 % (0.0-2.0); EOSINOPHILS # (AUTO) 0.2 K/uL (0.0-0.7); EOSINOPHILS % (AUTO) 3.3 % (0.0-7.0); HEMATOCRIT 25.4 % (31.2-41.9); LYMPHOCYTES # (AUTO) 0.8 K/uL (20.0-40.0); LYMPHOCYTES % (AUTO) 16.9 % (20.5-51.5); MEAN CORPUSCULAR HEMOGLOBIN 35.8 uug (24.7-32.8); MEAN CORPUSCULAR HGB CONC 35 g/dL (32.3-35.6); MEAN CORPUSCULAR VOLUME 101.1 fL (75.5-95.3); MONOCYTES # (AUTO) 0.4 K/uL (2.0-10.0); MONOCYTES % (AUTO) 9.3 % (0.0-11.0); NEUTROPHILS # (AUTO) 3.1 K/uL (1.8-8.9); NEUTROPHILS % (AUTO) 68.9 % (38.5-71.5); PLATELET COUNT (AUTO) 114 K/uL (179-408); RED BLOOD CELL COUNT(AUTO) 2.51 MIL/uL (3.63-4.92); WHITE BLOOD COUNT (AUTO) 4.6 K/uL (3.8-11.8)
[2017-12-03 07:26] VITALS: BP 147/73
--- NOTE | 2017-12-03 07:30 | NUR ---
received report from plant operator/shift supervisor. patient stable upon initial assessment, asleep, with no s.s acute distress. call light within reach. will continue to monitor.
[2017-12-03 08:00] LABS: CARBON DIOXIDE 26 mmol/L (21-32); CHLORIDE 103 mmol/L (98-107); CREATININE 1.1 mg/dL (0.6-1.3); GLUCOSE 116 mg/dL (74-106); MAGNESIUM 1.8 mg/dL (1.8-2.4); PHOSPHOROUS 2.3 mg/dL (2.5-4.9); POTASSIUM 4.5 mmol/L (3.5-5.1); UREA NITROGEN, BLOOD 26 mg/dL (7-18)
[2017-12-03] MEDS: AMITRIPTYLINE HCL 10 MG TABLET PO SCH (10:15)
[2017-12-03] MEDS: HEPARIN SODIUM,PORCINE 5,000 UNITS/ML VIAL SQ SCH ×2 (10:15→20:46)
[2017-12-03] MEDS: TAMSULOSIN HCL 0.4 MG CAP.SR.24H PO SCH (10:15)
[2017-12-03] MEDS: METOPROLOL TARTRATE 100 MG TABLET PO SCH (10:16)
[2017-12-03] MEDS: DONEPEZIL 10 MG TABLET PO SCH (10:17)
--- NOTE | 2017-12-03 11:02 | NUR ---
I agree Addendum: 12/03/17 at 1102 by MANNY PRIETO OT Amended: Links added.
--- NOTE | 2017-12-03 11:03 | NUR ---
I agree Addendum: 12/03/17 at 1103 by MANNY PRIETO OT Amended: Links added.
[2017-12-03] MEDS: SIMETHICONE 80 MG TAB.CHEW PO PRN ×2 (13:21→18:01)
[2017-12-03] MEDS ORDERED: NEUTRA PHOS PACKET PO ONE (15:15)
[2017-12-03] MEDS: BOOST PLUS 237 ML LIQUID (RICH CHOCOLATE) PO SCH (16:06)
[2017-12-03] MEDS: HYDROCODONE/APAP 10-325 MG TABLET PO PRN (18:40)
--- NOTE | 2017-12-03 19:27 | NUR ---
patient stable this shift. no s/s distress. BM current. patient still drowsy but easily arousable. family at bedside. will endorse to machinist 2nd shift
[2017-12-03 20:41] VITALS: BP 120/67
--- NOTE | 2017-12-03 21:22 | NUR ---
more alert today. sitter at bedside. arousable. no acute distress noted. needs attended. kept comfortable. will monitor patient. no complaints presented during shift. incontinent of BM kept clean and dry. Velasquez catheter intact draining yellow urine. I & O monitor. Repositioned for comfort.
[2017-12-04] MEDS: MIRTAZAPINE 15 MG TABLET PO PRN ×2 (00:36→22:01)
--- NOTE | 2017-12-04 05:28 | NUR ---
slept most of the shift. no distress noted. sitter at bedside. repositioned for comfort. turned q2hrs . denies any pain at this moment.
[2017-12-04] MEDS: PANTOPRAZOLE SODIUM 40 MG TABLET.DR PO SCH (06:14)
[2017-12-04 08:00] VITALS: BP 165/72
[2017-12-04] MEDS: TAMSULOSIN HCL 0.4 MG CAP.SR.24H PO SCH (09:05)
[2017-12-04] MEDS: DONEPEZIL 10 MG TABLET PO SCH (09:05)
[2017-12-04] MEDS: AMITRIPTYLINE HCL 10 MG TABLET PO SCH (09:05)
[2017-12-04] MEDS: METOPROLOL TARTRATE 100 MG TABLET PO SCH (09:06)
[2017-12-04] MEDS: BOOST PLUS 237 ML LIQUID (RICH CHOCOLATE) PO SCH ×2 (09:19→18:12)
[2017-12-04] MEDS: HEPARIN SODIUM,PORCINE 5,000 UNITS/ML VIAL SQ SCH ×2 (09:19→20:31)
[2017-12-04 15:53] VITALS: BP 126/104
[2017-12-04] MEDS: MEGESTROL ACETATE 20 MG TABLET PO SCH (18:11)
--- NOTE | 2017-12-04 18:30 | NUR ---
Patient seen by [employer] SOLUT[employer] ARCHITECT. Patient has poor appetite, encouraged meal/fluid intake. Patient is cooperative with patient care and medications. Left hip hiren intact, no s/s of infection/discharge/bleeding. Dressing on left hip clean/dry/intact. Velasquez cath patent/intact draining yellow urine. Safety measures in place. Call light within reach. Caregiver at bedside.
--- NOTE | 2017-12-04 19:45 | NUR ---
Pt resting comfortably in bed. Daughter and personal lines agent at bedside. No acute distress noted. No c/o pain or discomfort. Safety measures maintained. Call light and personal belongings within reach. Will continue to monitor.
[2017-12-04] MEDS: SIMETHICONE 80 MG TAB.CHEW PO PRN (20:25)
[2017-12-04] MEDS: QUETIAPINE FUMARATE 25 MG TABLET PO SCH (20:26)
[2017-12-04 21:00] VITALS: BP 119/80
[2017-12-04] MEDS: HYDROCODONE/APAP 10-325 MG TABLET PO PRN (22:02)
[2017-12-05 05:40] VITALS: BP 110/73
[2017-12-05] MEDS: PANTOPRAZOLE SODIUM 40 MG TABLET.DR PO SCH (06:27)
[2017-12-05 07:05] LABS: CARBON DIOXIDE 28 mmol/L (21-32); CHLORIDE 103 mmol/L (98-107); GLUCOSE 100 mg/dL (74-106); MAGNESIUM 1.9 mg/dL (1.8-2.4); PHOSPHOROUS 2.6 mg/dL (2.5-4.9); POTASSIUM 4.2 mmol/L (3.5-5.1); UREA NITROGEN, BLOOD 23 mg/dL (7-18)
[2017-12-05 07:08] LABS: BASOPHILS # (AUTO) 0.1 K/uL (0.0-8.0); MEAN CORPUSCULAR HGB CONC 34 g/dL (32.3-35.6); MONOCYTES # (AUTO) 0.5 K/uL (2.0-10.0)
[2017-12-05 07:57] LABS: BASOPHILS % (AUTO) 1.9 % (0.0-2.0); EOSINOPHILS # (AUTO) 0.3 K/uL (0.0-0.7); EOSINOPHILS % (AUTO) 5.8 % (0.0-7.0); LYMPHOCYTES # (AUTO) 1.3 K/uL (20.0-40.0); LYMPHOCYTES % (AUTO) 23.1 % (20.5-51.5); MEAN CORPUSCULAR HEMOGLOBIN 35.1 uug (24.7-32.8); MEAN CORPUSCULAR VOLUME 102.2 fL (75.5-95.3); MONOCYTES % (AUTO) 8.6 % (0.0-11.0); NEUTROPHILS # (AUTO) 3.4 K/uL (1.8-8.9); NEUTROPHILS % (AUTO) 60.6 % (38.5-71.5); PLATELET COUNT (AUTO) 126 K/uL (179-408); RED BLOOD CELL COUNT(AUTO) 2.74 MIL/uL (3.63-4.92); WHITE BLOOD COUNT (AUTO) 5.6 K/uL (3.8-11.8)
[2017-12-05] MEDS: BOOST PLUS 237 ML LIQUID (RICH CHOCOLATE) PO SCH ×2 (08:00→17:13)
[2017-12-05 08:21] LABS: HEMOGLOBIN 9.6 g/dL (10.9-14.3)
[2017-12-05 08:42] VITALS: BP 132/70
[2017-12-05] MEDS: DONEPEZIL 10 MG TABLET PO SCH (08:57)
[2017-12-05] MEDS: TAMSULOSIN HCL 0.4 MG CAP.SR.24H PO SCH (08:57)
[2017-12-05] MEDS: METOPROLOL TARTRATE 100 MG TABLET PO SCH (08:58)
[2017-12-05] MEDS: AMITRIPTYLINE HCL 10 MG TABLET PO SCH (08:58)
[2017-12-05] MEDS: HEPARIN SODIUM,PORCINE 5,000 UNITS/ML VIAL SQ SCH ×2 (09:00→20:20)
[2017-12-05] MEDS: MEGESTROL ACETATE 20 MG TABLET PO SCH ×2 (09:26→17:13)
[2017-12-05] MEDS: HYDROCODONE/APAP 10-325 MG TABLET PO PRN ×2 (10:07→17:13)
[2017-12-05 16:00] VITALS: BP 133/71
[2017-12-05] MEDS: SIMETHICONE 80 MG TAB.CHEW PO PRN (17:12)
--- NOTE | 2017-12-05 18:08 | NUR ---
Pt. is alert and verbally responsive with periods of confusion. Continue on pain management with good effect. BMx1 medium soft noted. not in distress. call lala within reach. will continue monitor
--- NOTE | 2017-12-05 19:45 | NUR ---
Pt resting in bed. Daughter at bedside. No acute distress noted. No c/o pain or discomfort. Safety measures maintained. Velasquez catheter draining well and has to be removed in the morning. Call light and personal belongings within reach. Will continue to monitor.
[2017-12-05 19:54] VITALS: BP 112/68
[2017-12-05] MEDS: QUETIAPINE FUMARATE 25 MG TABLET PO SCH (20:15)
[2017-12-06 05:38] VITALS: BP 121/60
[2017-12-06] MEDS: PANTOPRAZOLE SODIUM 40 MG TABLET.DR PO SCH (06:17)
[2017-12-06] MEDS: MEGESTROL ACETATE 20 MG TABLET PO SCH ×2 (12:26→17:13)
[2017-12-06] MEDS: AMITRIPTYLINE HCL 10 MG TABLET PO SCH (12:26)
[2017-12-06] MEDS: TAMSULOSIN HCL 0.4 MG CAP.SR.24H PO SCH (12:26)
[2017-12-06] MEDS: HEPARIN SODIUM,PORCINE 5,000 UNITS/ML VIAL SQ SCH ×2 (12:28→21:02)
[2017-12-06] MEDS: BOOST PLUS 237 ML LIQUID (RICH CHOCOLATE) PO SCH ×2 (12:29→17:13)
[2017-12-06] MEDS: DONEPEZIL 10 MG TABLET PO SCH (12:29)
[2017-12-06] MEDS: METOPROLOL TARTRATE 100 MG TABLET PO SCH (12:33)
[2017-12-06] MEDS: SIMETHICONE 80 MG TAB.CHEW PO PRN (14:41)
[2017-12-06 16:09] VITALS: BP 119/53
--- NOTE | 2017-12-06 17:53 | NUR ---
URINATION NO URINE OUTPUT FOR THE ENTIRE SHIFT. F/C REINSERTED RECEIVED 500ML. URINE CLEAR NORMA. KRIS WELL
--- NOTE | 2017-12-06 20:00 | NUR ---
PATIENT IS AWAKE IN BED, SHE'S AAOX2 AND FORGETFUL. SHE DENIES PAIN OR ANY DISTRESS ON ASSESSMENT. VSS STABLE WITH NO FEVER. INCISION SITE CLEAN WITH NO S/S OF INFECTION. CAREGIVER AT BEDSIDE. SAFETY MEASURES IN PLACE.
[2017-12-06 20:14] VITALS: BP 128/69
[2017-12-06] MEDS: QUETIAPINE FUMARATE 25 MG TABLET PO SCH (21:02)
[2017-12-07] MEDS: HYDROCODONE/APAP 10-325 MG TABLET PO PRN ×4 (00:52→19:56)
[2017-12-07] MEDS: PANTOPRAZOLE SODIUM 40 MG TABLET.DR PO SCH (06:02)
[2017-12-07 06:26] VITALS: BP 121/68
--- NOTE | 2017-12-07 06:36 | NUR ---
PATIENT IS ASLEEP AT PRESENT, C/O HIP PAIN. PAIN MEDS GIVEN X2 ON THIS SHIFT. NO FURTHER CHANGE IN STATUS, VSS STABLE ON THIS SHIFT. SAFETY MAINTAINED AT ALL TIMES.
[2017-12-07] MEDS: BOOST PLUS 237 ML LIQUID (RICH CHOCOLATE) PO SCH ×2 (08:00→17:00)
--- NOTE | 2017-12-07 08:20 | NUR ---
I agree Addendum: 12/07/17 at 0821 by MANNY PRIETO OT Amended: Links added.
[2017-12-07 08:26] VITALS: BP 113/50
[2017-12-07] MEDS: METOPROLOL TARTRATE 100 MG TABLET PO SCH (09:00)
[2017-12-07] MEDS: DONEPEZIL 10 MG TABLET PO SCH (09:39)
[2017-12-07] MEDS: HEPARIN SODIUM,PORCINE 5,000 UNITS/ML VIAL SQ SCH ×2 (09:41→20:54)
[2017-12-07] MEDS: TAMSULOSIN HCL 0.4 MG CAP.SR.24H PO SCH (09:42)
[2017-12-07] MEDS: AMITRIPTYLINE HCL 10 MG TABLET PO SCH (09:42)
[2017-12-07] MEDS: MEGESTROL ACETATE 20 MG TABLET PO SCH ×2 (09:42→18:20)
--- NOTE | 2017-12-07 10:35 | NUR ---
Patient noted up in wheelchair with Physical therapy, complaints of pain on left hip, prn [place] given, no signs of distress noted
[2017-12-07 16:14] VITALS: BP 161/84
[2017-12-07] MEDS: SIMETHICONE 80 MG TAB.CHEW PO PRN (18:49)
--- NOTE | 2017-12-07 18:56 | NUR ---
PRN simethicone for patient complaints of "upset stomach"
[2017-12-07 19:30] VITALS: BP 107/65
[2017-12-07] MEDS: QUETIAPINE FUMARATE 25 MG TABLET PO SCH (20:51)
--- NOTE | 2017-12-07 21:29 | NUR ---
awake alert and oriented x3 no acute distress noted. daughter in with patient. kept comfortable. complained of lower back pain, norco 1 tab given for pain. will monitor for results. repositioned for comfort. needs attended. left hip dressing clean dry and intact. rivera catheter draining yellow urine. vital signs stable.
[2017-12-08 05:19] VITALS: BP 147/78
[2017-12-08] MEDS: PANTOPRAZOLE SODIUM 40 MG TABLET.DR PO SCH (06:19)
--- NOTE | 2017-12-08 06:52 | NUR ---
slept well. incontinent of BM. kept clean and dry. Velasquez catheter intact. Repositioned for comfort. Turned to sides. Left hip dressing intact. No distress noted. Will monitor patient.
[2017-12-08 07:47] VITALS: BP 152/87
--- NOTE | 2017-12-08 08:22 | NUR ---
Patient noted resting in bed, arouses easily, call light in reach, bed locked and in lowest position, no complaints of pain at this time, no signs of distress noted
[2017-12-08] MEDS: BOOST PLUS 237 ML LIQUID (RICH CHOCOLATE) PO SCH ×2 (08:48→16:27)
[2017-12-08] MEDS: DONEPEZIL 10 MG TABLET PO SCH (08:49)
[2017-12-08] MEDS: METOPROLOL TARTRATE 100 MG TABLET PO SCH (08:49)
[2017-12-08] MEDS: TAMSULOSIN HCL 0.4 MG CAP.SR.24H PO SCH (08:49)
[2017-12-08] MEDS: AMITRIPTYLINE HCL 10 MG TABLET PO SCH (08:49)
[2017-12-08] MEDS: MEGESTROL ACETATE 20 MG TABLET PO SCH ×2 (08:50→16:26)
[2017-12-08] MEDS: HEPARIN SODIUM,PORCINE 5,000 UNITS/ML VIAL SQ SCH ×2 (08:51→21:39)
[2017-12-08] MEDS: SIMETHICONE 80 MG TAB.CHEW PO PRN ×2 (10:45→16:26)
[2017-12-08] MEDS: HYDROCODONE/APAP 10-325 MG TABLET PO PRN ×2 (10:45→17:06)
[2017-12-08 15:30] VITALS: BP 128/54
--- NOTE | 2017-12-08 19:13 | NUR ---
RECEIVED REPORT FROM DAY SHIFT NURSE, RECEIVED Pt IN BED WITH CAREGIVER AT BEDSIDE, AWAKE, A/O X 3 WITH NOTED FORGETFULNESS AND SLIGHT CONFUSION. DENIES PAIN OR DISCOMFORT AT THIS TIME, ABLE TO MAKE NEEDS KNOWN TO NURSE, COMPLIANT WITH CARE STAFF. EMPHASIZED SAFETY, BED AT LOWEST POSITION WITH WHEELS LOCKED, SIDE RAILS UP X 2.
[2017-12-08 20:26] VITALS: BP 104/58
[2017-12-08] MEDS: QUETIAPINE FUMARATE 25 MG TABLET PO SCH (21:35)
[2017-12-09 05:17] VITALS: BP 119/56
--- NOTE | 2017-12-09 06:29 | NUR ---
DURING BED BATH THIS MORNING, NURSE DISCOVERED A NEWLY SMALL OPEN WOUND. CHARGE NURSE NOTIFIED, REQUESTED WOUND CONSULT.
[2017-12-09] MEDS: PANTOPRAZOLE SODIUM 40 MG TABLET.DR PO SCH (06:33)
--- NOTE | 2017-12-09 06:55 | NUR ---
Pt SLEPT WELL THROUGHOUT THE NIGHT WITHOUT ANY INTERRUPTIONS. DENIED PAIN OR DISCOMFORT THIS MORNING, NO DISTRESS NOTED. COMPLIANT WITH MEDS AND CARE STAFF, NO AGGRESSIVE BX NOTED, NOTED CONFUSION.
--- NOTE | 2017-12-09 07:53 | NUR ---
I agree Addendum: 12/09/17 at 0754 by BEV RAMÍREZ OT Amended: Links added.
--- NOTE | 2017-12-09 08:00 | NUR ---
Patient awake, verbally responsive, not in any form of acute distress. She denies any pain or discomfort at this time. Call light placed within reach. Assisted to her needs.
[2017-12-09 08:30] VITALS: BP 134/62
[2017-12-09] MEDS: AMITRIPTYLINE HCL 10 MG TABLET PO SCH (10:48)
[2017-12-09] MEDS: METOPROLOL TARTRATE 100 MG TABLET PO SCH (10:48)
[2017-12-09] MEDS: DONEPEZIL 10 MG TABLET PO SCH (10:48)
[2017-12-09] MEDS: TAMSULOSIN HCL 0.4 MG CAP.SR.24H PO SCH (10:48)
[2017-12-09] MEDS: MEGESTROL ACETATE 20 MG TABLET PO SCH ×2 (10:49→17:56)
[2017-12-09] MEDS: HYDROCODONE/APAP 10-325 MG TABLET PO PRN ×2 (10:50→21:17)
[2017-12-09] MEDS: HEPARIN SODIUM,PORCINE 5,000 UNITS/ML VIAL SQ SCH ×2 (10:51→20:06)
[2017-12-09] MEDS: BOOST PLUS 237 ML LIQUID (RICH CHOCOLATE) PO SCH ×2 (11:05→17:56)
--- NOTE | 2017-12-09 11:54 | NUR ---
WOUND CARE CONSULT: PT PRESENTS WITH GLUTEAL CREASE EXCORIATION. PT IS INCONTINENT OF STOOL. LAWRENCE IN USE. RECOMMENDATIONS MADE FOR SKIN PROTECTION AND CARE. DISCUSSED WITH NURSING STAFF. ALL SKIN PROTECTION MEASURES IN PLACE. WILL SEE PRN. LEE IN AGREEMENT WITH PLAN OF CARE. Addendum: 12/09/17 at 1157 by MAKENNA CHARLES RN Amended: Links added.
[2017-12-09 16:43] VITALS: BP 100/62
--- NOTE | 2017-12-09 19:30 | NUR ---
Patient lying in bed comfortably at start of shift with no acute distress noted. casing cooker at the bedside. Patient is A/Ox3 & able to make her needs known. Pertinent assessment completed. Noted with a rivera catheter hanging below the level of the bladder & off the floor. Urine flowing through catheter. Bed in low position & locked. Patient complaining of 8/10 lower back & left hip pain at start of shift. Will medicate per MD order & continue to monitor. Left hip incision is clean & dry with no s/s of infection or inflammation noted at surgical site. Dressing intact. Call light within reach. will continue to monitor.
[2017-12-09] MEDS: QUETIAPINE FUMARATE 25 MG TABLET PO SCH (20:05)
[2017-12-09 20:13] VITALS: BP 121/62
[2017-12-10 05:28] VITALS: BP 132/68
[2017-12-10] MEDS: PANTOPRAZOLE SODIUM 40 MG TABLET.DR PO SCH (06:25)
--- NOTE | 2017-12-10 06:46 | NUR ---
Patient slept intermittently through the shift. Private caregiver remained at the bedside through the night. No acute distress noted. vital signs stable through shift. All needs attended to promptly. Skin care provided to patient. Patient kept clean & dry, changed per soiling. All medications given per MD order. Safety measures implemented. Call light within reach. will endorse to day shift RN.
[2017-12-10 07:00] LABS: BASOPHILS # (AUTO) 0.1 K/uL (0.0-8.0); BASOPHILS % (AUTO) 1.7 % (0.0-2.0); EOSINOPHILS # (AUTO) 0.3 K/uL (0.0-0.7); EOSINOPHILS % (AUTO) 3.9 % (0.0-7.0); HEMATOCRIT 29.4 % (31.2-41.9); HEMOGLOBIN 10.4 g/dL (10.9-14.3); LYMPHOCYTES # (AUTO) 1.2 K/uL (20.0-40.0); LYMPHOCYTES % (AUTO) 18.2 % (20.5-51.5); MEAN CORPUSCULAR HEMOGLOBIN 35.7 uug (24.7-32.8); MEAN CORPUSCULAR HGB CONC 35 g/dL (32.3-35.6); MEAN CORPUSCULAR VOLUME 101.2 fL (75.5-95.3); MONOCYTES # (AUTO) 0.3 K/uL (2.0-10.0); MONOCYTES % (AUTO) 5.2 % (0.0-11.0); NEUTROPHILS # (AUTO) 4.8 K/uL (1.8-8.9); PLATELET COUNT (AUTO) 137 K/uL (179-408); RED BLOOD CELL COUNT(AUTO) 2.91 MIL/uL (3.63-4.92); WHITE BLOOD COUNT (AUTO) 6.8 K/uL (3.8-11.8)
[2017-12-10 07:12] LABS: ALANINE AMINOTRANSFERASE 23 U/L (14-59); ALKALINE PHOSPHATASE 169 U/L (50-136); ASPARTATE AMINOTRANSFERASE 43 U/L (15-37); BILIRUBIN,TOTAL 0.6 mg/dL (0.2-1.0); CARBON DIOXIDE 27 mmol/L (21-32); CHLORIDE 101 mmol/L (98-107); CREATININE 1.4 mg/dL (0.6-1.3); GLUCOSE 99 mg/dL (74-106); MAGNESIUM 2.2 mg/dL (1.8-2.4); PHOSPHOROUS 3.3 mg/dL (2.5-4.9); POTASSIUM 4.4 mmol/L (3.5-5.1); UREA NITROGEN, BLOOD 25 mg/dL (7-18)
[2017-12-10 08:00] VITALS: BP 126/73
[2017-12-10] MEDS: BOOST PLUS 237 ML LIQUID (RICH CHOCOLATE) PO SCH (08:50)
[2017-12-10] MEDS: METOPROLOL TARTRATE 100 MG TABLET PO SCH (08:52)
[2017-12-10] MEDS: TAMSULOSIN HCL 0.4 MG CAP.SR.24H PO SCH (08:52)
[2017-12-10] MEDS: AMITRIPTYLINE HCL 10 MG TABLET PO SCH (08:53)
[2017-12-10] MEDS: DONEPEZIL 10 MG TABLET PO SCH (08:53)
[2017-12-10] MEDS: MEGESTROL ACETATE 20 MG TABLET PO SCH (08:54)
[2017-12-10] MEDS: HEPARIN SODIUM,PORCINE 5,000 UNITS/ML VIAL SQ SCH (09:00)
[2017-12-10 16:00] VITALS: BP 112/61
--- NOTE | 2017-12-10 16:39 | NUR ---
PATIENT BEEN DISCHARGE HOME IN STABLE CONDITION TO [facility]. LAWRENCE WAS DC, MONITORED FOR RETENTION. BLADDER SCANNER WAS DONE 3 HOURS LATER [facility] WAS FOUND. V/S WNL. PATIENT WAS TAKEN BY AMBULANCE ACCOMPANIED BY CAREGIVER.
== END 2017-12-10 16:40 | disposition home health service (06) | DRG 561 ==
PROVIDERS: ADMIT Physical Medicine & Rehabilitation Pain Medicine; ATTEND Physical Medicine & Rehabilitation Pain Medicine
DX: S72.142D Displaced intertrochanteric fracture of left femur, subsequent encounter for closed fracture with routine healing (principal); D69.6 Thrombocytopenia, unspecified; F03.90 Unspecified dementia, unspecified severity, without behavioral disturbance, psychotic disturbance, mood disturbance, and anxiety; Z96.653 Presence of artificial knee joint, bilateral; I10 Essential (primary) hypertension; K21.9 Gastro-esophageal reflux disease without esophagitis; E83.39 Other disorders of phosphorus metabolism; Z85.3 Personal history of malignant neoplasm of breast; M19.011 Primary osteoarthritis, right shoulder; M19.012 Primary osteoarthritis, left shoulder; M75.92 Shoulder lesion, unspecified, left shoulder; M75.91 Shoulder lesion, unspecified, right shoulder; M89.9 Disorder of bone, unspecified; Z90.12 Acquired absence of left breast and nipple; W19.XXXD Unspecified fall, subsequent encounter; Z96.641 Presence of right artificial hip joint; M54.5 Low back pain; R53.83 Other fatigue; Z88.0 Allergy status to penicillin; N18.9 Chronic kidney disease, unspecified
CPT/HCPCS: 36415; 71045; 83735; 84100; 85018; 85025; 92526; 92610; 93005; 97110; 97112; 97116; 97165; 97530; 97535; A4663; J1644